=== PATIENT | female | born 1940 | race Two or more races ===

== ENCOUNTER 2020-05-21 05:45 | Day surgery (SDC) | payer OTHER ==
[~2020-05-21 05:45] MED LIST: AMLODIPINE BESYL5 MG PO; COZAAR100 MG PO; MELATONIN PO; PANADOL EXTRA500 MG PO
[2020-05-21] MEDS ORDERED: PERCOCET 5-3251 EACH PO (10:38)
== END 2020-05-21 13:30 | disposition home or self-care (01) ==
LOC: CIR.AMB 05:45
PROVIDERS: ATTEND Surgery
DX: D35.1 Benign neoplasm of parathyroid gland (principal); Z20.828 Contact with and (suspected) exposure to other viral communicable diseases